=== PATIENT | male | born 1985 ===

== ENCOUNTER 2022-08-07 07:05 | Emergency (ER) | payer OTHER ==
[2022-08-07 07:10] VITALS: BP 129/85; PULSE 98; TEMP 97.7
[2022-08-07 07:30] VITALS: RESP 18
[2022-08-07] MEDS ORDERED: dexAMETHasone 4 MG TAB PO STA (07:33)
--- NOTE | 2022-08-07 07:39 | ED ---
General Adult HPI - General Chief complaint: Allergic Reaction Stated complaint: rash, possible reaction Time Seen by Provider: 08/07/22 07:10 Source: patient Mode of arrival: ambulatory Limitations: no limitations - History of Present Illness Initial comments: Dictation was produced using [employer] dictation software. please excuse any grammatical, word or spelling errors. Chief Complaint: 36-year-old male presents emergency department for rash History of Present Illness: Age 36-year-old male presents emergency department for several hours of acute rash. States that his skin became itchy last night. Patient states that his purchased a new soap and yesterday he had some pears 1-2 hours before his symptoms began. Patient denies any other symptoms. No shortness of breath. No chest pain. No abdominal pain or nausea vomiting. Patient is a history of hives. It is no history of ALLERGIES. Denies any sensation of his throat feeling swollen. The ROS documented in this emergency department record has been reviewed and confirmed by me. Those systems with pertinent positive or negative responses have been documented in the HPI. All other systems are other negative and/or noncontributory. PHYSICAL EXAM: General Impression: Alert and oriented x3, not in acute distress HEENT: Normocephalic atraumatic, extra-ocular movements intact, pupils equal and reactive to light bilaterally, mucous membranes moist. Cardiovascular: Heart regular rate and rhythm Chest: Able to complete full sentences, no retractions, no tachypnea Abdomen: abdomen soft, non-tender, non-distended, no organomegaly Musculoskeletal: Pulses present and equal in all extremities, no peripheral edema Motor: no focal deficits noted Neurological: CN II-XII grossly intact, no focal motor or sensory deficits noted Skin: Urticarial rash to the extremities abdomen back and neck Psych: Normal affect and mood ED course: 36-year-old male presents to the emergency department for acute urticaria. Signs upon arrival are within acceptable limits. he does not have any signs of anaphylaxis or severe ALLERGIC reaction. Nursing notes and chart review was performed Was pt. sent in by a medical professional or institution (, PA, MEDICAL DATA ANALYST, urgent care, hospital, or group home...) When possible be specific @ -No Did you speak to anyone other than the patient for history (EMS, parent, family, police, friend...)? What history was obtained from this source @ -No Did you review nursing and triage notes (agree or disagree)? Why? @ -I reviewed and agree with nursing and triage notes Were old charts reviewed (outside hosp., previous admission, EMS record, old EKG, old radiological studies, urgent care reports/EKG's, group home records)? Report findings @ -No old charts were reviewed Differential Diagnosis (chest pain, altered mental status, abdominal pain women, abdominal pain men, vaginal bleeding, weakness, fever, dyspnea, syncope, headache, dizziness, GI bleed, back pain, seizure, CVA, palpatations, mental health)? @ -Anaphylaxis, angioedema, rash EKG interpreted by me (3pts min.). @ -As above X-rays interpreted by me (1pt min.). @ -None done CT interpreted by me (1pt min.). @ -None done U/S interpreted by me (1pt. min.). @ -None done What testing was considered but not performed or refused? (CT, X-rays, U/S, labs)? Why? @ -None What meds were considered but not given or refused? Why? @ -None Did you discuss the management of the patient with other professionals (professionals i.e. , PA, MEDICAL DATA ANALYST, lab, RT, psych nurse, social welfare clerk, international trade analyst, teacher, campus police officer, egg caser)? Give summary @ -No Was smoking cessation discussed for >3mins.? @ -No Was critical care preformed (if so, how long)? @ -No Were there social determinants of health that impacted care today? How? (Homelessness, low income, unemployed, alcoholism, drug addiction, transportation, low edu. Level, literacy, decrease access to med. care, group home, rehab)? @ -No Was there de-escalation of care discussed even if they declined (Discuss DNR or withdrawal of care, Hospice)? DNR status @ -No What co-morbidities impacted this encounter? (DM, HTN, Smoking, COPD, CAD, Cancer, CVA, ARF, Chemo, Hep., AIDS, mental health diagnosis, sleep apnea, morbid obesity)? @ -None Was patient admitted / discharged? Hospital course, mention meds given and route, prescriptions, significant lab abnormalities, going to OR and other pertinent info. @ -See above Undiagnosed new problem with uncertain prognosis? @ -No Drug Therapy requiring intensive monitoring for toxicity (Heparin, Nitro, Insulin, Cardizem)? @ -No Were any procedures done? @ -No Diagnosis/symptom? @ -Acute urticaria, no obvious cause Acute, or Chronic, or Acute on Chronic? @ -Acute Uncomplicated (without systemic symptoms) or Complicated (systemic symptoms)? @ -Uncomplicated Side effects of treatment? @ -No Exacerbation, Progression, or Severe Exacerbation? @ -No Poses a threat to life or bodily function? How? (Chest pain, [place], [place], pneumonia, PE, COPD, DKA, ARF, appy, cholecystitis, CVA, Diverticulitis, Homicidal, Suicidal, threat to staff... and all critical care pts) @ -No - Related Data Previous Rx's Medication Instructions Recorded Fexofenadine HCl [Lorene Allergy] 180 mg PO DAILY #24 tablet 08/07/22 Allergies Allergy/AdvReac Type Severity Reaction Status Date / Time No Known Allergies Allergy Verified 08/07/22 07:07 Review of Systems ROS Statement: Those systems with pertinent positive or pertinent negative responses have been documented in the HPI. ROS Other: All systems not noted in ROS Statement are negative. Past Medical History Past Medical History: No Reported History History of Any Multi-Drug Resistant Organisms: None Reported Additional Past Surgical History / Comment(s): colonscopy Past Psychological History: No Psychological Hx Reported Smoking Status: Never smoker Past Alcohol Use History: Rare Past Drug Use History: None Reported General Exam Limitations: no limitations Course Vital Signs 08/07/22 08/07/22 07:07 07:24 Temperature 97.7 F Pulse Rate 98 Respiratory 16 18 Rate Blood Pressure 129/85 O2 Sat by Pulse 98 Oximetry Disposition Clinical Impression: Urticaria Disposition: HOME SELF-CARE Instructions (If sedation given, give patient instructions): Urticaria (ED) Prescriptions: Fexofenadine HCl [Lorene Allergy] 180 mg PO DAILY #24 tablet Is patient prescribed a controlled substance at d/c from ED?: No Referrals: None,Stated [Primary Care Provider] - 1-2 days Time of Disposition: 07:39
== END 2022-08-07 07:51 | disposition home or self-care (01) ==
LOC: EC 07:05
DX: L50.9 Urticaria, unspecified (principal)
CPT/HCPCS: 99282; J8540

== ENCOUNTER 2022-08-08 20:16 | Emergency (ER) | payer OTHER ==
[2022-08-08 20:28] VITALS: RESP 16; TEMP 98
[2022-08-08] MEDS ORDERED: METOCLOPRAMIDE 5 MG/ML 2 ML VIAL IVP STA (21:06)
[2022-08-08] MEDS ORDERED: FAMOTIDINE 20 MG/2 ML VIAL IV STA (21:21)
[2022-08-08] MEDS ORDERED: methylPREDNISolone SOD SUCCI 125 MG/2 ML VIAL IV STA (21:21)
[2022-08-08] MEDS ORDERED: diphenhydrAMINE 50 MG/ML 1 ML VIAL IVP STA (21:21)
--- NOTE | 2022-08-08 21:44 | XR ---
EXAMINATION TYPE: XR soft tissue neck DATE OF EXAM: 08/08/2022 9:11 PM INDICATION: Patient age:Male; 36 years old; Reason for study: allergic rxn; COMPARISON: None TECHNIQUE: The soft tissues of the neck were imaged in 2 views. FINDINGS: The prevertebral space appears thickened on lateral view. Calcification of the nuchal ligam ent. Remainder of the soft tissues are grossly unremarkable. No evidence of acute fracture. IMPRESSION: Prevertebral/posterior oropharynx soft tissue thickening suggested. This can be confirmed with CT nec k. Alternatively this may represent summation of overlapping tissues.
--- NOTE | 2022-08-08 21:45 | XR ---
EXAMINATION TYPE: XR chest 2V DATE OF EXAM: 08/08/2022 9:11 PM COMPARISON: None TECHNIQUE: XR chest 2V Frontal and lateral views of the chest. CLINICAL INDICATION:Male, 36 years old with history of hiccups; FINDINGS: Lungs/Pleura: There is no evidence of pleural effusion, focal consolidation, or pneumothorax. Pulmonary vascularity: Unremarkable. Heart/mediastinum: Cardiomediastinal silhouette is unremarkable. Musculoskeletal: No acute osseous pathology. IMPRESSION: No acute cardiopulmonary disease/process.
[2022-08-08 22:47] LABS: Basophils % (A) 0 %; Eosinophils # (A) 0.2 k/uL (0-0.7); Eosinophils % (A) 2 %; HCT 38.5 % (39.0-53.0); HGB 14.1 gm/dL (13.0-17.5); Lymphocytes # (A) 2.9 k/uL (1.0-4.8); Lymphocytes % (A) 26 %; MCH 32.4 pg (25.0-35.0); MCHC 36.7 g/dL (31.0-37.0); MCV 88.4 fL (80.0-100.0); Mean Platelet Volume 7.9; Monocytes # (A) 0.7 k/uL (0-1.0); Monocytes % (A) 6 %; Neutrophils # (A) 7.4 k/uL (1.3-7.7); Neutrophils % (A) 65 %; Platelet Count 207 k/uL (150-450); RBC 4.36 m/uL (4.30-5.90); WBC 11.4 k/uL (3.8-10.6)
[2022-08-08 23:03] LABS: ALT 25 U/L (4-49); AST 25 U/L (17-59); African American GFR (CKD) >90 (>60 ml/min/1.73 sqM); Albumin 3.8 g/dL (3.5-5.0); Alkaline Phosphatase 61 U/L (38-126); Anion Gap 4 mmol/L; Blood Urea Nitrogen 19 mg/dL (9-20); C Reactive Protein 0.6 mg/dL (<1.0); Calcium 8.3 mg/dL (8.4-10.2); Carbon Dioxide 27 mmol/L (22-30); Chloride 104 mmol/L (98-107); Glucose 118 mg/dL (74-99); Non-African American GFR(CKD) >90 (>60 ml/min/1.73 sqM); Sodium 135 mmol/L (137-145); Total Bilirubin 0.3 mg/dL (0.2-1.3); Total Protein 6.3 g/dL (6.3-8.2)
--- NOTE | 2022-08-08 23:15 | CT ---
EXAMINATION TYPE: CT neck chest w con DATE OF EXAM: 08/08/2022 COMPARISON: HISTORY: Allergic reaction from unknown origin x24hrs ago. Hiccups x24hrs. Pt c/o throat swelling. CT DLP: 748.2 mGycm Automated exposure control for dose reduction was used. CONTRAST: Performed with IV Contrast, patient injected with 100cc mL of Isovue 300. Images obtained from the orbits to the diaphragm with the IV contrast. There is normal aeration of the visualized paranasal sinuses. No focal bone destruction. No evidence of retro-orbital mass. Maxilla is intact. Parotid glands are symmetric. The submandibular salivary gl ands are symmetric. No evidence of cervical lymphadenopathy. The tongue appears normal. Epiglottis is normal. Prevertebral soft tissues appear normal. The tonsils and adenoids appear normal. The subglottic trachea appears normal. Thyroid gland is symmetric. There is no mediastinal adenopathy. There is normal enhancement of the cervical carotid and vertebral arteries. There is normal enhancement of the jugular veins. Heart is normal. There are no hilar masses. Thoracic aorta is intact. No aneurysm. The lungs are clear of infiltrate. There is mild subsegmental atelectasis at the lung bases. No pleur al effusion. No pericardial effusion. The upper abdominal soft tissues are intact. Cervical vertebra appear intact. Thoracic vertebra appear intact. No compression fracture. Sternum is intact. No evidence of rib fracture. Shoulder joints are intact. IMPRESSION: No significant abnormality of the neck and chest. No discrete neck mass. No suspicious pulmonary mass .
--- NOTE | 2022-08-08 23:21 | ED ---
Allergic Reaction HPI - General Chief complaint: Allergic Reaction Stated complaint: revisit-rash/allergic reaction Time Seen by Provider: 08/08/22 21:02 Source: patient Mode of arrival: ambulatory Limitations: no limitations - History of Present Illness Initial Comments: Patient is a 36-year-old male who presents to the emergency department with a chief complaint of throat swelling. Patient was in our emergency department yesterday for generalized ALLERGIC reaction with hives, no obvious cause. Patient was prescribed Lorene which he has been taking. States after he got home yesterday started to feel throat swelling. Denies shortness of breath. States his rash is improving. Denies fever, chills, throat pain. - Related Data Previous Rx's Medication Instructions Recorded Fexofenadine HCl [Lorene Allergy] 180 mg PO DAILY #24 tablet 08/07/22 predniSONE 50 mg PO DAILY #5 tab 08/08/22 Allergies Allergy/AdvReac Type Severity Reaction Status Date / Time No Known Allergies Allergy Verified 08/08/22 22:18 Review of Systems ROS Statement: Those systems with pertinent positive or pertinent negative responses have been documented in the HPI. ROS Other: All systems not noted in ROS Statement are negative. Past Medical History Past Medical History: No Reported History History of Any Multi-Drug Resistant Organisms: None Reported Additional Past Surgical History / Comment(s): colonscopy Past Psychological History: No Psychological Hx Reported Smoking Status: Never smoker Past Alcohol Use History: Rare Past Drug Use History: None Reported General Exam Limitations: no limitations General appearance: alert Head exam: Present: atraumatic, normocephalic, normal inspection ENT exam: Present: normal oropharynx Neck exam: Present: normal inspection, full ROM. Absent: tenderness, lymphadenopathy Respiratory exam: Present: normal lung sounds bilaterally. Absent: respiratory distress, wheezes, rales, rhonchi, stridor Cardiovascular Exam: Present: regular rate, normal rhythm, normal heart sounds. Absent: systolic murmur, diastolic murmur, rubs, gallop, clicks GI/Abdominal exam: Present: soft, normal bowel sounds. Absent: distended, tenderness, guarding, rebound, rigid Extremities exam: Present: other (erythema and urticaria of the b/l hands dorsal ly) Neurological exam: Present: alert, oriented X3, CN II-XII intact Psychiatric exam: Present: normal affect, normal mood Course Vital Signs 08/08/22 08/08/22 20:26 23:30 Temperature 98 F Pulse Rate 83 77 Respiratory 16 16 Rate Blood Pressure 178/70 152/82 O2 Sat by Pulse 99 96 Oximetry Medical Decision Making - Medical Decision Making Was pt. sent in by a medical professional or institution (, [facility], BEAN SORTER, urgent care, hospital, or care home...) When possible be specific @ -[No] Did you speak to anyone other than the patient for history (EMS, parent, family, police, friend...)? What history was obtained from this source @ -[No] Did you review nursing and triage notes (agree or disagree)? Why? @ -[I reviewed and agree with nursing and triage notes] Were old charts reviewed (outside hosp., previous admission, EMS record, old EKG, old radiological studies, urgent care reports/EKG's, care home records)? Report findings @ -Yes, review chart from yesterday Differential Diagnosis (chest pain, altered mental status, abdominal pain women, abdominal pain men, vaginal bleeding, weakness, fever, dyspnea, syncope, headache, dizziness, GI bleed, back pain, seizure, CVA, palpatations, mental health)? @ -strep throat, allergic reaction, anaphylaxis EKG interpreted by me (3pts min.). @ -[As above] X-rays interpreted by me (1pt min.). @ -Yes, soft tissue neck x-ray shows prevertebral/posterior oropharynx soft tissue thickening suggested, although this may represent summation overlapping tissues. Chest x-ray negative for acute process CT interpreted by me (1pt min.). @ Yes, CT neck and chest shows no significant abnormality. U/S interpreted by me (1pt. min.). @ -[None done] What testing was considered but not performed or refused? (CT, X-rays, U/S, labs)? Why? @ -[None] What meds were considered but not given or refused? Why? @ -[None] Did you discuss the management of the patient with other professionals (professionals i.e. BLOSSOM Harvey, BEAN SORTER, lab, RT, psych nurse, social media marketing analyst, patch worker, teacher, postal sorting officer, case management specialist)? Give summary @ -[No] Was smoking cessation discussed for >3mins.? @ -[No] Was critical care preformed (if so, how long)? @ -[No] Were there social determinants of health that impacted care today? How? (Homelessness, low income, unemployed, alcoholism, drug addiction, transportation, low edu. Level, literacy, decrease access to med. care, care home, rehab)? @ -[No] Was there de-escalation of care discussed even if they declined (Discuss DNR or withdrawal of care, Hospice)? DNR status @ -[No] What co-morbidities impacted this encounter? (DM, HTN, Smoking, COPD, CAD, Cancer, CVA, ARF, Chemo, Hep., AIDS, mental health diagnosis, sleep apnea, morbid obesity)? @ -[None] Was patient admitted / discharged? Hospital course, mention meds given and route, prescriptions, significant lab abnormalities, going to OR and other pertinent info. @ This is a 36-year-old male who presents for sensation of throat swelling. Patient resting comfortably, there is no airway involvement. His rash is improving. Soft tissue x-ray does show concern for thickening of the posterior oropharynx. There is no significant swelling found on CT of the neck and chest. Patient given allergy cocktail with improvement of symptoms. He was observed closely in the emergency department and continued to improve. Discussed case with him in detail, possibly due to some type of food ingestion. Patient will be discharged with 5 days of prednisone. We discussed strict return parameters. Undiagnosed new problem with uncertain prognosis? @ -[No] Drug Therapy requiring intensive monitoring for toxicity (Heparin, Nitro, Insulin, Cardizem)? @ -[No] Were any procedures done? @ -[No] Diagnosis/symptom? @ allergic reaction Acute, or Chronic, or Acute on Chronic? @ -acute Uncomplicated (without systemic symptoms) or Complicated (systemic symptoms)? @ -[default] Side effects of treatment? @ -[No] Exacerbation, Progression, or Severe Exacerbation? @ -[No] Poses a threat to life or bodily function? How? (Chest pain, [place], [place], pneumonia, PE, COPD, DKA, ARF, appy, cholecystitis, CVA, Diverticulitis, Homicidal, Suicidal, threat to staff... and all critical care pts) @ -[No] Dr. Lance is my attending. - Lab Data Result diagrams: 08/08/22 22:38 08/08/22 22:38 Lab Results 08/08/22 08/08/22 08/08/22 Range/Units 22:38 22:38 22:38 WBC 11.4 H (3.8-10.6) k/uL RBC 4.36 (4.30-5.90) m/uL Hgb 14.1 (13.0-17.5) gm/dL Hct 38.5 L (39.0-53.0) % MCV 88.4 (80.0-100.0) fL MCH 32.4 (25.0-35.0) pg MCHC 36.7 (31.0-37.0) g/dL RDW 12.0 (11.5-15.5) % Plt Count 207 (150-450) k/uL MPV 7.9 Neutrophils % 65 % Lymphocytes % 26 % Monocytes % 6 % Eosinophils % 2 % Basophils % 0 % Neutrophils # 7.4 (1.3-7.7) k/uL Lymphocytes # 2.9 (1.0-4.8) k/uL Monocytes # 0.7 (0-1.0) k/uL Eosinophils # 0.2 (0-0.7) k/uL Basophils # 0.0 (0-0.2) k/uL ESR 6 (0-15) mm/hr Sodium 135 L (137-145) mmol/L Potassium 4.0 (3.5-5.1) mmol/L Chloride 104 (98-107) mmol/L Carbon Dioxide 27 (22-30) mmol/L Anion Gap 4 mmol/L BUN 19 (9-20) mg/dL Creatinine 0.78 (0.66-1.25) mg/dL Est GFR (CKD-EPI)AfAm >90 (>60 ml/min/1.73 sqM) Est GFR (CKD-EPI)NonAf >90 (>60 ml/min/1.73 sqM) Glucose 118 H (74-99) mg/dL Calcium 8.3 L (8.4-10.2) mg/dL Total Bilirubin 0.3 (0.2-1.3) mg/dL AST 25 (17-59) U/L ALT 25 (4-49) U/L Alkaline Phosphatase 61 (38-126) U/L C-Reactive Protein 0.6 (<1.0) mg/dL Total Protein 6.3 (6.3-8.2) g/dL Albumin 3.8 (3.5-5.0) g/dL Group A Strep (PCR) NOT DETECTED (Not Detectd) Disposition Clinical Impression: Allergic reaction, Throat swelling Disposition: HOME SELF-CARE Condition: Good Instructions (If sedation given, give patient instructions): Anaphylaxis (ED) Additional Instructions: Take medication as directed. Start prescription tomorrow. Follow-up with primary care provider in 1-2 days. Return to the emergency department if you experience new, concerning, or worsening symptoms. Prescriptions: predniSONE 50 mg PO DAILY #5 tab Is patient prescribed a controlled substance at d/c from ED?: No Referrals: Ramon Meeks MD [Primary Care Provider] - 1-2 days
[2022-08-08 23:40] VITALS: BP 152/82; PULSE 77
[2022-08-08 23:49] LABS: Erythrocyte Sedimentation Rate 6 mm/hr (0-15)
== END 2022-08-08 23:57 | disposition home or self-care (01) ==
LOC: EC 20:16
DX: T78.40XA Allergy, unspecified, initial encounter (principal); R22.1 Localized swelling, mass and lump, neck
CPT/HCPCS: 36415; 87651; 80053; 85652; 85025; 86140; 70360; 71046; 70491; 71260; 99284; 96374; 96375 ×2; J1200; J2930; Q9967

== ENCOUNTER 2023-08-06 09:03 | Emergency (ER) | payer OTHER ==
[2023-08-06] MEDS ORDERED: SODIUM CHLORIDE 0.9% 500 ML 500 ML IV STA (09:30)
[2023-08-06] MEDS ORDERED: KETOROLAC 15 MG/ML 1 ML VIAL IVP STA (09:33)
--- NOTE | 2023-08-06 09:39 | ED ---
General Adult HPI - General Chief complaint: Chest Pain Stated complaint: chest pain Time Seen by Provider: 08/06/23 09:09 Source: patient, RN notes reviewed, old records reviewed Mode of arrival: ambulatory Limitations: no limitations - History of Present Illness Initial comments: Patient is a 37-year-old male who presents to this department with nonspecific chest pain. Has a history of intermittent chest discomfort. Does have a very physically demanding job working for the [employer]. Has no significant cardiac history in himself or family members. Presents complaining of sudden onset substernal/left-sided chest discomfort at approximately 3 AM this morning. States it resolved and I have some residual discomfort on the right side. States since happened previously. No known palliative or provocative factors. Currently resting comfortably with no associated symptoms. Denies nausea, vomiting, radiation of the pain. States it is essentially gone at this time. Denies any acid reflux or nausea. Presents for further evaluation.Patient also had a episode of shooting pain down the right arm with movements yesterday which self resolved. Currently no symptoms. Seems radicular in nature. - Related Data Home Medications Medication Instructions Recorded Confirmed No Known Home Medications 08/06/23 08/06/23 Allergies Allergy/AdvReac Type Severity Reaction Status Date / Time No Known Allergies Allergy Verified 08/06/23 09:45 Review of Systems ROS Statement: Those systems with pertinent positive or pertinent negative responses have been documented in the HPI. Review of Systems: CONST: Denies fever EYES: Denies blurry vision ENT: Denies nasal congestion C/V: Endorses chest pain RESP: Denies shortness of breath GI: Denies abdominal pain : Denies dysuria SKIN: Denies rash. MSK: Denies joint pain. NEURO: Denies headache ROS Other: All systems not noted in ROS Statement are negative. Past Medical History Past Medical History: No Reported History History of Any Multi-Drug Resistant Organisms: None Reported Past Surgical History: No Surgical Hx Reported Additional Past Surgical History / Comment(s): colonscopy Past Psychological History: No Psychological Hx Reported Smoking Status: Never smoker Past Alcohol Use History: Rare Past Drug Use History: None Reported General Exam - General Exam Comments Initial Comments: General: Appears in no acute distress. HEAD: Normal with no signs of head trauma. EYES: PERRLA, EOMI, conjunctiva normal, no discharge. ENT: Hearing grossly intact, normal oropharynx. RESPIRATORY: Clear breath sounds bilaterally. No wheezes, rales, or rhonchi. C/V: Regular rate and rhythm. S1 and S2 auscultated, no edema, peripheral pu lses 2+ and intact throughout ABD: Abd is soft, nontender, nondistended EXT: Normal range of motion, no obvious deformity SKIN: No rashes or lesions observed on exposed skin. NEURO: Alert and oriented x 4. Limitations: no limitations Course Vital Signs 08/06/23 08/06/23 08/06/23 09:06 10:06 12:43 Temperature 98.3 F Pulse Rate 70 78 70 Respiratory 16 16 20 Rate Blood Pressure 144/94 115/76 118/73 O2 Sat by Pulse 99 95 100 Oximetry 08/06/23 14:00 Temperature 98.0 F Pulse Rate 86 Respiratory 16 Rate Blood Pressure 120/84 O2 Sat by Pulse 99 Oximetry Medical Decision Making - Medical Decision Making Was pt. sent in by a medical professional or institution (, PA, SIGN HANGER SUPERVISOR, urgent care, hospital, or senior living...) When possible be specific @ -No Did you speak to anyone other than the patient for history (EMS, parent, family, police, friend...)? What history was obtained from this source @ -No Did you review nursing and triage notes (agree or disagree)? Why? @ -I reviewed and agree with nursing and triage notes Were old charts reviewed (outside hosp., previous admission, EMS record, old EKG, old radiological studies, urgent care reports/EKG's, senior living records)? Report findings @ -Old charts reviewed Differential Diagnosis (chest pain, altered mental status, abdominal pain women, abdominal pain men, vaginal bleeding, weakness, fever, dyspnea, syncope, headache, dizziness, GI bleed, back pain, seizure, CVA, palpatations, mental he alth, musculoskeletal)? @ -Differential Chest Pain: Stable Angina, Unstable Angina, STEMI, NSTEMI Aortic Dissection, Pneumothorax, Musculoskeletal, Esophageal Spasm GERD, Cholecystitis, Pancreatitis, Zoster, this is not meant to be an all-inclusive list. EKG interpreted by me (3pts min.). @ -As above X-rays interpreted by me (1pt min.). @ -Chest x-ray reveals no obvious acute cardiopulmonary process. CT interpreted by me (1pt min.). @ -CT angios chest revealed no obvious PE. No other obvious acute process. U/S interpreted by me (1pt. min.). @ -None done What testing was considered but not performed or refused? (CT, X-rays, U/S, labs)? Why? @ -None What meds were considered but not given or refused? Why? @ -None Did you discuss the management of the patient with other professionals (professionals i.e. DrSushma, PA, SIGN HANGER SUPERVISOR, lab, RT, psych nurse, nephrology social worker, biophysics teacher, teacher, chief security officer, housing case manager)? Give summary @ -No Was smoking cessation discussed for >3mins.? @ -No Was critical care preformed (if so, how long)? @ -No Were there social determinants of health that impacted care today? How? (Homelessness, low income, unemployed, alcoholism, drug addiction, transportation, low edu. Level, literacy, decrease access to med. care, retirement, rehab)? @ -No Was there de-escalation of care discussed even if they declined (Discuss DNR or withdrawal of care, Hospice)? DNR status @ -No What co-morbidities impacted this encounter? (DM, HTN, Smoking, COPD, CAD, Cancer, CVA, ARF, Chemo, Hep., AIDS, mental health diagnosis, sleep apnea, morbid obesity)? @ -None Was patient admitted / discharged? Hospital course, mention meds given and route, prescriptions, significant lab abnormalities, going to OR and other pertinent info. @ -Based on the patient's presentation and physical exam, presents with acute on chronic chest pain has expresses before however seems to be more persistent. Had an episode at 3 AM this morning that this essentially resolved at this time. We will obtain a cardiopulmonary workup. Vital signs are within acceptable limits. He will be given a dose of IV fluids and IV Toradol for symptomatic treatment. Patient agreement this plan. EKG shows no signs of acute ischemia.Imaging is unremarkable. Patient's laboratory studies revealed an elevated d-dimer of 0.[address] angiogram was negative for PE. 2 troponins were undetectable. RSV is positive. After multiple hours observation in the department, patient remains stable. We discussed his workup. He'll be discharged home at this time. He was in agreement this plan. Diagnosis is chest wall pain and RSV. Recommended he avoid contact with infants as well as elderly sick individuals due to the RSV infection. I instructed the patient to follow up with their PCP in the next 1-3 days. I explained that the patient should return to the emergency department if they experience any worsening symptoms. Strict return precautions were discussed with the patient. The patient expressed understanding of these instructions. I answered all questions that the patient had. The patient was discharged home in good condition with their prescriptions and follow up information. Undiagnosed new problem with uncertain prognosis? @ -No Drug Therapy requiring intensive monitoring for toxicity (Heparin, Nitro, Insulin, Cardizem)? @ -No Were any procedures done? @ -No Diagnosis/symptom? @ -Chest wall pain, RSV bronchiolitis Acute, or Chronic, or Acute on Chronic? @ -Acute Uncomplicated (without systemic symptoms) or Complicated (systemic symptoms)? @ -Uncomplicated Side effects of treatment? @ -none Exacerbation, Progression, or Severe Exacerbation] @ -no Poses a threat to life or bodily function? @ -no - Lab Data Result diagrams: 08/06/23 09:56 08/06/23 09:56 Lab Results 08/06/23 08/06/23 08/06/23 Range/Units 09:56 09:56 09:56 WBC 10.3 (3.8-10.6) k/uL RBC 5.13 (4.30-5.90) m/uL Hgb 16.3 (13.0-17.5) gm/dL Hct 45.9 (39.0-53.0) % MCV 89.5 (80.0-100.0) fL MCH 31.7 (25.0-35.0) pg MCHC 35.4 (31.0-37.0) g/dL RDW 11.8 (11.5-15.5) % Plt Count 241 (150-450) k/uL MPV 7.4 Neutrophils % 63 % Lymphocytes % 27 % Monocytes % 6 % Eosinophils % 2 % Basophils % 0 % Neutrophils # 6.5 (1.3-7.7) k/uL Lymphocytes # 2.8 (1.0-4.8) k/uL Monocytes # 0.7 (0-1.0) k/uL Eosinophils # 0.2 (0-0.7) k/uL Basophils # 0.0 (0-0.2) k/uL PT 10.5 (10.0-12.5) sec INR 0.9 (<1.2) APTT 26.0 (22.0-30.0) sec D-Dimer 0.83 H (<0.60) mg/L FEU Sodium 139 (137-145) mmol/L Potassium 4.3 (3.5-5.1) mmol/L Chloride 101 (98-107) mmol/L Carbon Dioxide 27 (22-30) mmol/L Anion Gap 11 mmol/L BUN 14 (9-20) mg/dL Creatinine 0.87 (0.66-1.25) mg/dL Est GFR (CKD-EPI)AfAm >90 (>60 ml/min/1.73 sqM) Est GFR (CKD-EPI)NonAf >90 (>60 ml/min/1.73 sqM) Glucose 80 (74-99) mg/dL Calcium 9.5 (8.4-10.2) mg/dL Magnesium 2.0 (1.6-2.3) mg/dL Total Bilirubin 0.5 (0.2-1.3) mg/dL AST 32 (17-59) U/L ALT 27 (4-49) U/L Alkaline Phosphatase 63 (38-126) U/L Troponin I (0.000-0.034) ng/mL NT-Pro-B Natriuret Pep <20 pg/mL Total Protein 8.1 (6.3-8.2) g/dL Albumin 4.8 (3.5-5.0) g/dL Lipase 185 (23-300) U/L Influenza Type A (PCR) (Not Detectd) Influenza Type B (PCR) (Not Detectd) RSV (PCR) (Not Detectd) SARS-CoV-2 (PCR) (Not Detectd) 08/06/23 08/06/23 08/06/23 Range/Units 09:56 09:56 12:34 WBC (3.8-10.6) k/uL RBC (4.30-5.90) m/uL Hgb (13.0-17.5) gm/dL Hct (39.0-53.0) % MCV (80.0-100.0) fL MCH (25.0-35.0) pg MCHC (31.0-37.0) g/dL RDW (11.5-15.5) % Plt Count (150-450) k/uL MPV Neutrophils % % Lymphocytes % % Monocytes % % Eosinophils % % Basophils % % Neutrophils # (1.3-7.7) k/uL Lymphocytes # (1.0-4.8) k/uL Monocytes # (0-1.0) k/uL Eosinophils # (0-0.7) k/uL Basophils # (0-0.2) k/uL PT (10.0-12.5) sec INR (<1.2) APTT (22.0-30.0) sec D-Dimer (<0.60) mg/L FEU Sodium (137-145) mmol/L Potassium (3.5-5.1) mmol/L Chloride (98-107) mmol/L Carbon Dioxide (22-30) mmol/L Anion Gap mmol/L BUN (9-20) mg/dL Creatinine (0.66-1.25) mg/dL Est GFR (CKD-EPI)AfAm (>60 ml/min/1.73 sqM) Est GFR (CKD-EPI)NonAf (>60 ml/min/1.73 sqM) Glucose (74-99) mg/dL Calcium (8.4-10.2) mg/dL Magnesium (1.6-2.3) mg/dL Total Bilirubin (0.2-1.3) mg/dL AST (17-59) U/L ALT (4-49) U/L Alkaline Phosphatase (38-126) U/L Troponin I <0.012 <0.012 (0.000-0.034) ng/mL NT-Pro-B Natriuret Pep pg/mL Total Protein (6.3-8.2) g/dL Albumin (3.5-5.0) g/dL Lipase (23-300) U/L Influenza Type A (PCR) Not Detected (Not Detectd) Influenza Type B (PCR) Not Detected (Not Detectd) RSV (PCR) Detected A (Not Detectd) SARS-CoV-2 (PCR) Not Detected (Not Detectd) - EKG Data -: EKG Interpreted by Me EKG Comments: 12-lead Electrocardiogram Interpretation Note EKG was reviewed and interpreted by myself. 12-lead ECG performed at 0913 is interpreted by me as revealing normal sinus rhythm at a rate of 69 beats per minute. [place] is normal. MI interval is 144 ms, QRS duration is 94 ms, QTc is 390 ms.. There were no ST or T wave abnormalities to suggest myocardial ischemia or injury. R wave progression across the precordium was satisfactory. By my interpretation this EKG is non-diagnostic for acute ischemia. Disposition Clinical Impression: Chest wall pain, RSV bronchiolitis Disposition: HOME SELF-CARE Condition: Good Instructions (If sedation given, give patient instructions): Respiratory Syncyt ial Virus (ED), Chest Wall Pain (ED) Is patient prescribed a controlled substance at d/c from ED?: No Referrals: Nonstaff,Physician [Primary Care Provider] - 1-2 days Time of Disposition: 13:42
[2023-08-06 10:07] LABS: Basophils % (A) 0 %; Eosinophils # (A) 0.2 k/uL (0-0.7); Eosinophils % (A) 2 %; HCT 45.9 % (39.0-53.0); HGB 16.3 gm/dL (13.0-17.5); Lymphocytes # (A) 2.8 k/uL (1.0-4.8); Lymphocytes % (A) 27 %; MCH 31.7 pg (25.0-35.0); MCHC 35.4 g/dL (31.0-37.0); MCV 89.5 fL (80.0-100.0); Mean Platelet Volume 7.4; Monocytes # (A) 0.7 k/uL (0-1.0); Monocytes % (A) 6 %; Neutrophils # (A) 6.5 k/uL (1.3-7.7); Neutrophils % (A) 63 %; Platelet Count 241 k/uL (150-450); RBC 5.13 m/uL (4.30-5.90); RDW 11.8 % (11.5-15.5); WBC 10.3 k/uL (3.8-10.6)
[2023-08-06 10:21] LABS: INR 0.9 (<1.2); Prothrombin Time 10.5 sec (10.0-12.5)
[2023-08-06 10:34] LABS: ALT 27 U/L (4-49); AST 32 U/L (17-59); African American GFR (CKD) >90 (>60 ml/min/1.73 sqM); Albumin 4.8 g/dL (3.5-5.0); Alkaline Phosphatase 63 U/L (38-126); Anion Gap 11 mmol/L; Blood Urea Nitrogen 14 mg/dL (9-20); Calcium 9.5 mg/dL (8.4-10.2); Carbon Dioxide 27 mmol/L (22-30); Chloride 101 mmol/L (98-107); Glucose 80 mg/dL (74-99); Lipase 185 U/L (23-300); Non-African American GFR(CKD) >90 (>60 ml/min/1.73 sqM); Potassium 4.3 mmol/L (3.5-5.1); Sodium 139 mmol/L (137-145); Total Bilirubin 0.5 mg/dL (0.2-1.3); Total Protein 8.1 g/dL (6.3-8.2)
[2023-08-06 10:41] LABS: NT-Pro-B-Type Natriuretic Pept <20 pg/mL
--- NOTE | 2023-08-06 10:56 | XR ---
EXAMINATION TYPE: XR chest 2V DATE OF EXAM: 08/06/2023 COMPARISON: 08/08/2022 HISTORY: 37-year-old male with chest pain TECHNIQUE: PA and lateral views FINDINGS: The cardiomediastinal silhouette, aorta, and pulmonary vasculature are within normal limits. Lungs an d pleural spaces are clear. IMPRESSION: No acute cardiopulmonary process.
--- NOTE | 2023-08-06 12:32 | CT ---
EXAMINATION TYPE: CT chest angio for PE CT DLP: 419.6 mGycm, Automated exposure control for dose reduction was used. DATE OF EXAM: 08/06/2023 11:46 AM COMPARISON: None. CLINICAL INDICATION:Male, 37 years old with history of elevated dimer, eval for PE; elevated dimer, e mary for PE, chest pain x1 day TECHNIQUE/CONTRAST: CTA scan of the thorax is performed with IV Contrast, patient injected with 70ml mL of Isovue 300, SD P images are created and reviewed these are created on a separate workstation.. FINDINGS: There is adequate contrast bolus and timing. PULMONARY ARTERIES: There is no convincing evidence for a filling defect within the pulmonary vascula ture to suggest acute pulmonary embolism. Pulmonary trunk is normal in size. Trunk measures 2.3 CM. LOWER NECK: No significant findings. MEDIASTINUM: No gross evidence of adenopathy. HEART: Normal heart size. No significant coronary calcifications. No appreciable pericardial effusio n. AORTA: Enhances normally without evidence of dissection flap. The usual 3 vessel arch branch pattern . Ascending aorta measures 2.8 cm, descending 2 cm. Aorta is normal in size. SOFT TISSUES/LYMPH NODES: Unremarkable soft tissues. No axillary adenopathy. LUNGS/ PLEURA: Mild limitation by motion. No airspace consolidation, pleural effusion, or pneumothora x. No sizable nodule or mass is detected. AIRWAY: Central airways are patent. MUSCULOSKELETAL: No acute osseous abnormality. Mild disc degeneration changes are present throughout the included thoracolumbar spine. UPPER ABDOMEN: No significant findings. IMPRESSION: 1. No evidence of pulmonary embolism. 2. No other acute chest process demonstrated.
[2023-08-06 14:22] VITALS: BP 120/84; PULSE 86; RESP 16; TEMP 98
== END 2023-08-06 14:01 | disposition home or self-care (01) ==
LOC: EC 09:03
DX: J21.0 Acute bronchiolitis due to respiratory syncytial virus (principal); R07.89 Other chest pain; Z20.822 Contact with and (suspected) exposure to COVID-19
CPT/HCPCS: 36415; 93005; 85379; 83880; 80053; 83690; 83735; 84484; 85025; 85610; 85730; 87636; 71046; 71275; 99285; 96374; 96361; J1885; Q9967